=== PATIENT | female | born 1960 | race Caucasian/White ===

== ENCOUNTER 2016-08-26 17:56 | Emergency (ER) | payer OTHER ==
[~2016-08-26] VITALS: Ht 162.6 cm; Wt 102.1 kg
[2016-08-26] MEDS ORDERED: CLEOCIN HCL150 MG PO (18:49)
[2016-08-26] MEDS ORDERED: HYDROCODONE-AP1 EAC6 PO (18:49)
[2016-08-26 19:02] VITALS: BP 149/89
[2016-11-05] MEDS ORDERED: TRAMADOL 50 MG50 MG PO (01:09)
[2016-11-05] MEDS ORDERED: MEDROXYPROGESTER5 MG PO (01:09)
[2016-11-05] MEDS ORDERED: AMARYL4 MG PO (01:09)
[2016-11-05] MEDS ORDERED: SULINDAC 200MG200 M1 PO (01:09)
[2016-11-05] MEDS ORDERED: METFORMIN HCL1000 MG PO (01:10)
[2016-11-05] MEDS ORDERED: NEURONTIN 300300 M1 PO (01:10)
== END 2016-08-26 19:02 | disposition home or self-care (01) ==
LOC: ER 17:56
DX: L02.31 Cutaneous abscess of buttock (principal); E11.9 Type 2 diabetes mellitus without complications; Z91.048 Other nonmedicinal substance allergy status; Z88.6 Allergy status to analgesic agent; Z88.0 Allergy status to penicillin; F17.210 Nicotine dependence, cigarettes, uncomplicated; F10.99 Alcohol use, unspecified with unspecified alcohol-induced disorder